=== PATIENT | male | born 1940 | race Caucasian/White ===

== ENCOUNTER 2018-02-27 08:26 | Inpatient (IN) | payer MEDICARE, BC ==
--- NOTE | 2018-02-27 16:17 | PCM.HP ---
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 He fell at home on 20 February is admitted at [facility] for orthopedic consultation. He underwent successful repair is now being admitted here for rehabilitation , strengthening, physical therapy pain control. He is previously healthy with exception of hypertension ,type 2 diabetes and obesity. His pain is under control with narcotics - Related Data Allergies/Adverse Reactions: Allergies Allergy/AdvReac Type Severity Reaction Status Date / Time morphine AdvReac Nausea and Verified 02/27/18 14:05 Vomiting Home Medications: Home Meds ALPRAZolam [Alprazolam] 0.25 mg PO BEDTIME PRN 02/27/18 [History] Citalopram Hydrobromide [Celexa] 20 mg PO DAILY 02/27/18 [History] Diazepam [Valium] 5 mg PO Q6H PRN 02/27/18 [History] Insulin NPH Hum/Reg Insulin Hm [Humulin 70/30 Kwikpen] 64 unit SQ BIDAC [History] Lisinopril 20 mg PO BEDTIME 02/27/18 [History] Multivitamin [Multi-Vitamin Daily] 1 each PO DAILY 02/27/18 [History] Sennosides/Docusate Sodium [Senna-S] 2 tab PO BID 02/27/18 [History] Simvastatin [Zocor] 10 mg PO BEDTIME 02/27/18 [History] Zolpidem Tartrate [Ambien] 5 mg PO BEDTIME PRN 02/27/18 [History] oxyCODONE 5 mg PO Q3H PRN 02/27/18 [History] oxyCODONE 10 mg PO Q3H PRN 02/27/18 [History] H&P Review of Systems - Review of Systems: Review Of Systems: ROS reveals no pertinent complaints other than HPI. Exam - Exam Exam: See Below - Exam Quality Assessment: DVT Prophylaxis General: Oriented HEENT: PERRLA Lungs: Crackles Cardiovascular: Regular Rate, Regular Rhythm GI/Abdominal Exam: Normal Bowel Sounds, Soft, Non-Tender, No Organomegaly, No Distention, No Abnormal Bruit, No Mass, Pelvis Stable Back Exam: Normal Inspection, Full Range of Motion, NT Extremities: Normal Inspection, Normal Range of Motion, Non-Tender, No Pedal Edema, Normal Capillary Refill, Redness (Rt femur dressing), Other Skin: Warm, Dry, Intact Neurological: Cranial Nerves Intact, Reflexes Equal Bilateral Neuro Extensive - Mental Status: Alert, Oriented x3, Normal Mood/Affect, Normal Cognition Neuro Extensive - Motor, Sensory, Reflexes: CN II-XII Intact, Normal Gait, Normal Reflexes Psychiatric: Alert, Normal Affect, Normal Mood - Problem List (1) Closed femur fracture SNOMED Code(s): 45083408 ICD Code: S72.90XA - UNSP FRACTURE OF UNSP FEMUR, INIT ENCNTR FOR CLOSED FRACTURE Status: Acute Current Visit: Yes Qualifiers: Encounter type: subsequent encounter Fracture morphology: comminuted Fracture alignment: displaced Laterality: right Fracture healing: with routine healing (2) Obesity SNOMED Code(s): 899759797, 932757575 ICD Code: E66.9 - OBESITY, UNSPECIFIED Status: Chronic Current Visit: Yes Qualifiers: Obesity type: due to excess calories (3) HTN (hypertension) SNOMED Code(s): 67790375 ICD Code: I10 - ESSENTIAL (PRIMARY) HYPERTENSION Status: Chronic Current Visit: Yes Qualifiers: Hypertension type: essential hypertension Qualified Code(s): I10 - Essential (primary) hypertension (4) Diabetes type 2, controlled SNOMED Code(s): 96926054 ICD Code: E11.9 - TYPE 2 DIABETES MELLITUS WITHOUT COMPLICATIONS Status: Acute Current Visit: Yes Qualifiers: Diabetes mellitus half-way insulin use: with electrician research use (5) HLD (hyperlipidemia) SNOMED Code(s): 81295854 ICD Code: E78.5 - HYPERLIPIDEMIA, UNSPECIFIED Status: Chronic Current Visit: Yes Qualifiers: Hyperlipidemia type: unspecified Qualified Code(s): E78.5 - Hyperlipidemia , unspecified Problem List Initiated/Reviewed/Updated: Yes Orders Last 24hrs: Active Orders 24 hr Category Date Time Status Admission Status [Patient Status] [ADT] Routine ADT 02/27/18 12:48 Active Assessment/Plan Comment:: Admit to swing bed, a consultation still physical and occupational therapy. Resume medications from [facility]. His record there was reviewed and discharge summary acknowledged
[2018-02-27] MEDS ORDERED: Diazepam 5 MG Tab PO PRN (16:18)
[2018-02-27] MEDS: oxyCODONE 5 MG Tab PO PRN ×2 (16:46→21:50)
[2018-02-27] MEDS ORDERED: Insuln Aspart Prot/Insulin Aspart 100 Units/ML 3 ML FlexPen SUBCUT SCH (17:30)
[2018-02-27] MEDS: Insuln Aspart Prot/Insulin Aspart 100 Units/ML 3 ML FlexPen SUBCUT SCH (21:34)
[2018-02-27] MEDS: Lisinopril 20 MG Tab PO SCH (21:49)
[2018-02-27] MEDS: Simvastatin 10 MG Tab PO SCH (21:50)
[2018-02-28] MEDS: Zolpidem 5 MG Tab PO PRN ×2 (00:56→21:38)
[2018-02-28] MEDS: oxyCODONE 5 MG Tab PO PRN ×2 (00:57→06:21)
[2018-02-28] MEDS: Multivitamin Tab PO SCH (08:57)
[2018-02-28] MEDS: Citalopram 20 MG Tab PO SCH (08:57)
[2018-02-28] MEDS: Enoxaparin 40 MG/0.4 ML Syringe SUBCUT SCH (08:57)
[2018-02-28] MEDS: Insuln Aspart Prot/Insulin Aspart 100 Units/ML 3 ML FlexPen SUBCUT SCH ×2 (08:58→18:59)
[2018-02-28] MEDS ORDERED: Bisacodyl 10 MG Supp RECTAL PRN (09:15)
[2018-02-28] MEDS: Ondansetron 4 MG Tab.DIS PO PRN (09:29)
[2018-02-28] MEDS ORDERED: Polyethylene Glycol 3350 Powder 17 GM Packet PO ONE (09:54)
[2018-02-28] MEDS ORDERED: LORazepam 0.5 MG Tab PO PRN (09:54)
[2018-02-28] MEDS ORDERED: Iopamidol 755 Mg/ML 100 ML Bottle IV ONE (13:55)
[2018-02-28] MEDS: Acetaminophen 325 MG Tab PO PRN (15:31)
--- NOTE | 2018-02-28 17:58 | PCM.SN ---
- Free Text/Narrative Note: Recent has some shortness of breath. Dr. Poole ordered a CT scan. He stated that the report was no PE. Cannot rule out pneumonia or CHF. The heart copies not done yet. Patient had a BM in the nurse reported he is much better. He has no symptoms at this time. Troponin is slightly elevated and trended up just barely. Will recheck EKG and troponin the a.m. Patient states the oxycodone does not make him feel good. He wants to decrease the pain medication. Start Narco 10/325 one every 4 hours when necessary for pain. Stop oxycodone
[2018-02-28] MEDS: Acetaminophen/HYDROcodone 325-10 MG Tab PO PRN (19:01)
[2018-02-28] MEDS: Simvastatin 10 MG Tab PO SCH (22:15)
[2018-02-28] MEDS: Lisinopril 20 MG Tab PO SCH (22:15)
--- NOTE | 2018-03-01 07:54 | CT ---
INDICATION: Short of breath, question PE. COMPUTERIZED TOMOGRAPHY ANGIOGRAPHY OF THE CHEST FOR PULMONARY ARTERIES: Spiral 1.25 mm axial sections were obtained through the chest with sagittal and coronal reconstructions, utilizing 90 mL Isovue 370 at 3 mL/second, 02/28/2018 - no comparisons. Total exam DLP = 935.63 mGy-cm. Calcifications are noted in the aorta and coronary arteries. The heart appears slightly prominent and likely is at the upper limits of normal in size. No pericardial effusion was seen. No mediastinal masses were seen. Mediastinal lymphadenopathy is mild and fairly nonspecific. Calcifications are noted in the brachiocephalic vessels. No definite evidence of pulmonary emboli could be identified. Interstitial changes and subpleural fibrotic appearing changes are noted, which may be on the basis on pulmonary fibrosis, although interstitial lung edema could also be present in a patient with an acute myocardial event - CHF. This should be correlated clinically. Pneumonia could also be present with this appearance but is felt to be less likely. No definite nodular masses were seen. The upper abdomen included on the study revealed evidence of renal cortical scarring, most prominently on the right, with minimal aortic superior mesenteric celiac axis and splenic artery calcifications. Calcifications were also noted at the origins of the renal arteries. IMPRESSION: 1. No definite evidence of pulmonary emboli. 2. Interstitial changes and subpleural changes, which may be on the basis of pulmonary fibrosis. The possibility of CHF and interstitial lung edema would be a consideration also. Pneumonia is felt to be less likely with this patient s history. 3. Renal cortical scarring. 4. ASD/ASHD with heart appearing to be at the upper limits of normal in size or possibly slightly enlarged. Report was called to Dr. Poole at 1446 hours on 02/28/2018. [facility]
[2018-03-01] MEDS: Acetaminophen/HYDROcodone 325-10 MG Tab PO PRN ×2 (08:25→13:47)
[2018-03-01] MEDS: Enoxaparin 40 MG/0.4 ML Syringe SUBCUT SCH (10:40)
[2018-03-01] MEDS: Citalopram 20 MG Tab PO SCH (10:40)
[2018-03-01] MEDS: Multivitamin Tab PO SCH (10:40)
[2018-03-01] MEDS: Aspirin 81 MG Tab.EC PO SCH (10:40)
[2018-03-01] MEDS: Insuln Aspart Prot/Insulin Aspart 100 Units/ML 3 ML FlexPen SUBCUT SCH ×2 (10:40→18:08)
--- NOTE | 2018-03-01 15:08 | PCM.PN ---
- General Info Date of Service: 03/01/18 Subjective Update: Patient is a 77-year-old male currently on swing bed day #3. Patient fell on February 20 and sustained a right distal femur fracture or a complex knee fracture involving the joint. On 02/24 underwent a complex right total knee arthroplasty and is here for rehabilitation. He was admitted to swing bed to [facility] on . Yesterday he was short of breath with activity and had an extensive evaluation for possible PE. Laboratory testing did show a somewhat confounding factor of a slightly elevated troponin to 0.1 which was 0.05 this morning. Because today is Sunday was able to obtain an echocardiogram which showed no wall motion abnormalities. However the preliminary report does not mention ejection fraction. Also had CT chest which was negative for PE. Patient did have left ventricular hypertrophy. He is feeling well today. He's having no shortness of breath or chest pain. No nausea or vomiting. Physical therapy is going well for him. They decreased his pain medicine yesterday which he feels has gone well and pain is well controlled. - Patient Data Vitals - Most Recent: Last Vital Signs Temp 37.0 C 03/01/18 07:10 Pulse 90 03/01/18 07:10 Resp 20 03/01/18 07:10 BP 136/68 03/01/18 07:10 Pulse Ox 92 L 03/01/18 07:10 Weight - Most Recent: 135.579 kg Lab Results Last 24 Hours: Laboratory Results - last 24 hr 02/28/18 02/28/18 03/01/18 Range/Units 16:40 17:33 06:05 POC Glucose 175 H (80-116) mg/dL Troponin I 0.105 H* 0.055 (<0.017-0.056) ng/mL 03/01/18 03/01/18 Range/Units 06:10 13:56 POC Glucose 99 166 H (80-116) mg/dL Troponin I (<0.017-0.056) ng/mL Med Orders - Current: Current Medications Acetaminophen (Tylenol) 650 mg PO Q4H PRN PRN Reason: Pain Last Admin: 02/28/18 15:31 Dose: 650 mg Hydrocodone Bitart/Acetaminophen ([place] 325-10 Mg) 1 tab PO Q4H PRN PRN Reason: Pain Last Admin: 03/01/18 13:47 Dose: 1 tab Aspirin (Halfprin) 81 mg PO DAILY [facility] Last Admin: 03/01/18 10:40 Dose: 81 mg Bisacodyl (Dulcolax) 10 mg RECTAL DAILY PRN PRN Reason: Constipation Last Admin: 02/28/18 10:15 Dose: 10 mg Citalopram Hydrobromide (Celexa) 20 mg PO DAILY [facility] Last Admin: 03/01/18 10:40 Dose: 20 mg Diazepam (Valium.) 5 mg PO Q6H PRN PRN Reason: Muscle Spasm Enoxaparin Sodium (Lovenox) 40 mg SUBCUT DAILY [facility] Last Admin: 03/01/18 10:40 Dose: 40 mg Insulin Aspart (Novolog Mix 70-30) 32 unit SUBCUT BIDMEALS [facility] Last Admin: 03/01/18 10:40 Dose: 32 units Lisinopril (Prinivil) 20 mg PO BEDTIME [facility] Last Admin: 02/28/18 22:15 Dose: 20 mg Lorazepam (Ativan) 0.5 mg PO Q8H PRN PRN Reason: Anxiety Multivitamins/Minerals/Vitamin C (Tab-A-Chavo) 1 tab PO DAILY [facility] Last Admin: 03/01/18 10:40 Dose: 1 tab Ondansetron HCl (Zofran Odt) 4 mg PO Q6H PRN PRN Reason: Nausea/Vomiting Last Admin: 02/28/18 09:29 Dose: 4 mg Senna/Docusate Sodium (Senna Plus) 2 tab PO BID [facility] Last Admin: 03/01/18 10:40 Dose: 2 tab Simvastatin (Zocor) 10 mg PO BEDTIME [facility] Last Admin: 02/28/18 22:15 Dose: 10 mg Zolpidem Tartrate (Ambien) 5 mg PO BEDTIME PRN PRN Reason: Insomnia Last Admin: 02/28/18 21:38 Dose: 5 mg Discontinued Medications Insulin Aspart (Novolog Mix 70-30) 64 unit SUBCUT BIDAC [facility] Last Admin: 02/27/18 18:20 Dose: Not Given Iopamidol (Isovue-370 (76%)) 100 ml IV . DIRECTED ONE Stop: 02/28/18 13:56 Last Admin: 02/28/18 14:14 Dose: 90 ml Oxycodone HCl (Oxycodone) 10 mg PO Q3H PRN PRN Reason: PAIN (6-10) Last Admin: 02/28/18 06:21 Dose: 10 mg Polyethylene Glycol (Miralax) 17 gm PO ONETIME ONE Stop: 02/28/18 09:55 Last Admin: 02/28/18 14:35 Dose: Not Given - Exam General: Alert, Oriented, Cooperative, No Acute Distress HEENT: Pupils Equal, Pupils Reactive Neck: Supple Lungs: Clear to Auscultation, Normal Respiratory Effort Cardiovascular: Regular Rate, Regular Rhythm, No Murmurs GI/Abdominal Exam: Normal Bowel Sounds, Soft, Non-Tender, No Distention Back Exam: Normal Inspection, Full Range of Motion Extremities: Normal Inspection, Pedal Edema (1+ edema bilaterally.) Psy/Mental Status: Alert, Normal Affect, Normal Mood - Problem List & Annotations (1) Status post total right knee replacement SNOMED Code(s): 6896560280750 Code(s): Z96.651 - PRESENCE OF RIGHT ARTIFICIAL KNEE JOINT Status: Acute Current Visit: Yes Annotation/Comment:: Secondary to fall after tripping on a pallet. Pain is well controlled. Patient doing very well with physical and occupational therapy. Continue current cares. (2) Elevated troponin SNOMED Code(s): 704081152, 872953655, 265619442 Code(s): R74.8 - ABNORMAL LEVELS OF OTHER SERUM ENZYMES Status: Acute Current Visit: Yes Annotation/Comment:: Trending down. Patient has no symptoms and echocardiogram showed no wall motion abnormalities. Patient was started on a baby aspirin daily for cardiac prophylaxis and it's not clear to me why he was not taking this with his diagnosis of diabetes and no listed allergy to aspirin. He doesn't know either. Recommend he continue this indefinitely. Discussed starting beta norm but with his diabetes and history of low blood sugars in the past and no evidence of true heart attack at this point I'm going to not start beta blockade. (3) Diabetes type 2, controlled SNOMED Code(s): 43862926 Code(s): E11.9 - TYPE 2 DIABETES MELLITUS WITHOUT COMPLICATIONS Status: Acute Current Visit: Yes Qualifiers: Diabetes mellitus mcfp insulin use: with moth exterminator use Annotation/Comment:: Continue current insulin therapy. (4) HLD (hyperlipidemia) SNOMED Code(s): 21712973 Code(s): E78.5 - HYPERLIPIDEMIA, UNSPECIFIED Status: Chronic Current Visit: Yes Qualifiers: Hyperlipidemia type: unspecified Qualified Code(s): E78.5 - Hyperlipidemia , unspecified Annotation/Comment:: Continue Zocor. (5) HTN (hypertension) SNOMED Code(s): 75746547 Code(s): I10 - ESSENTIAL (PRIMARY) HYPERTENSION Status: Chronic Current Visit: Yes Qualifiers: Hypertension type: essential hypertension Qualified Code(s): I10 - Essential (primary) hypertension Annotation/Comment:: Continue lisinopril. We'll decrease the dose by half as blood pressure has been quite soft. (6) Obesity SNOMED Code(s): 997568390, 505609314 Code(s): E66.9 - OBESITY, UNSPECIFIED Status: Chronic Current Visit: Yes Qualifiers: Obesity type: due to excess calories (7) DVT prophylaxis SNOMED Code(s): 804767798, 689449409 Code(s): GZS5885 - Status: Acute Current Visit: Yes Annotation/Comment :: Currently on Lovenox for DVT prophylaxis. The plan for discharge would be aspirin 81 mg twice daily for 42 days posthospital discharge. - Problem List Review Problem List Initiated/Reviewed/Updated: Yes - My Orders Last 24 Hours: My Active Orders 03/01/18 08:44 Echo Comp wo Cont [US] Routine 03/01/18 09:00 Aspirin [Halfprin] 81 mg PO DAILY
[2018-03-01] MEDS: Ondansetron 4 MG Tab.DIS PO PRN (19:56)
[2018-03-01] MEDS: Simvastatin 10 MG Tab PO SCH (21:25)
[2018-03-01] MEDS: Lisinopril 10 MG Tab PO SCH (21:28)
[2018-03-02] MEDS: Citalopram 20 MG Tab PO SCH (08:35)
[2018-03-02] MEDS: Enoxaparin 40 MG/0.4 ML Syringe SUBCUT SCH (08:35)
[2018-03-02] MEDS: Aspirin 81 MG Tab.EC PO SCH (08:35)
[2018-03-02] MEDS: Multivitamin Tab PO SCH (08:36)
[2018-03-02] MEDS: Insuln Aspart Prot/Insulin Aspart 100 Units/ML 3 ML FlexPen SUBCUT SCH ×2 (08:38→17:54)
[2018-03-02] MEDS ORDERED: Famotidine 20 MG Tab PO SCH (09:00)
[2018-03-02] MEDS: Ondansetron 4 MG Tab.DIS PO PRN ×2 (09:25→18:41)
[2018-03-02] MEDS: Acetaminophen 325 MG Tab PO PRN (09:25)
--- NOTE | 2018-03-02 10:49 | PCM.SN ---
- Free Text/Narrative Note: Patient doing well today. His Zantac was therapeutically substituted for pepcid and inadvertently time dosed for 9 AM instead of 7 AM. We changed that to 6 AM dosing so he can get it first thing in the morning and hopefully this will help with his morning heartburn as it's the same when he takes it at home.
[2018-03-02] MEDS ORDERED: rOPINIRole 1 MG Tab ONE (12:56)
[2018-03-02] MEDS: rOPINIRole 0.5 MG Tab PO PRN ×2 (13:03→20:24)
[2018-03-02] MEDS: Simvastatin 10 MG Tab PO SCH (22:03)
[2018-03-02] MEDS: Lisinopril 10 MG Tab PO SCH (22:03)
[2018-03-02] MEDS: Zolpidem 5 MG Tab PO PRN (22:08)
[2018-03-03] MEDS: rOPINIRole 0.5 MG Tab PO PRN ×2 (03:07→21:18)
[2018-03-03] MEDS: Famotidine 20 MG Tab PO SCH (06:12)
[2018-03-03] MEDS: Insuln Aspart Prot/Insulin Aspart 100 Units/ML 3 ML FlexPen SUBCUT SCH ×2 (08:18→17:55)
[2018-03-03] MEDS: Citalopram 20 MG Tab PO SCH (08:19)
[2018-03-03] MEDS: Enoxaparin 40 MG/0.4 ML Syringe SUBCUT SCH (08:20)
[2018-03-03] MEDS: Multivitamin Tab PO SCH (08:21)
[2018-03-03] MEDS: Aspirin 81 MG Tab.EC PO SCH (08:21)
[2018-03-03] MEDS: Acetaminophen 325 MG Tab PO PRN (08:32)
[2018-03-03] MEDS: Ondansetron 4 MG Tab.DIS PO PRN (08:35)
[2018-03-03] MEDS ORDERED: rOPINIRole 1 MG Tab ONE (17:02)
[2018-03-03] MEDS ORDERED: rOPINIRole 0.5 MG Tab PO ONE (17:21)
[2018-03-03] MEDS ORDERED: rOPINIRole 1 MG Tab PO ONE (18:00)
[2018-03-03] MEDS: Lisinopril 10 MG Tab PO SCH (21:18)
[2018-03-03] MEDS: Simvastatin 10 MG Tab PO SCH (21:18)
[2018-03-03] MEDS: Zolpidem 5 MG Tab PO PRN (23:17)
[2018-03-04] MEDS: Famotidine 20 MG Tab PO SCH (06:13)
[2018-03-04] MEDS: Citalopram 20 MG Tab PO SCH (08:53)
[2018-03-04] MEDS: Aspirin 81 MG Tab.EC PO SCH (08:53)
[2018-03-04] MEDS: Multivitamin Tab PO SCH (08:54)
[2018-03-04] MEDS: rOPINIRole 0.5 MG Tab PO PRN (08:54)
[2018-03-04] MEDS: Enoxaparin 40 MG/0.4 ML Syringe SUBCUT SCH (08:54)
[2018-03-04] MEDS: Insuln Aspart Prot/Insulin Aspart 100 Units/ML 3 ML FlexPen SUBCUT SCH ×2 (09:02→17:35)
[2018-03-04] MEDS: Acetaminophen 325 MG Tab PO PRN ×3 (10:14→19:50)
[2018-03-04] MEDS: Zolpidem 5 MG Tab PO PRN (21:22)
[2018-03-04] MEDS: Lisinopril 10 MG Tab PO SCH (21:22)
[2018-03-04] MEDS: Simvastatin 10 MG Tab PO SCH (21:23)
[2018-03-05] MEDS: Famotidine 20 MG Tab PO SCH (06:15)
[2018-03-05] MEDS: Insuln Aspart Prot/Insulin Aspart 100 Units/ML 3 ML FlexPen SUBCUT SCH ×2 (08:09→19:19)
[2018-03-05] MEDS: Citalopram 20 MG Tab PO SCH (08:12)
[2018-03-05] MEDS: Aspirin 81 MG Tab.EC PO SCH (08:12)
[2018-03-05] MEDS: Enoxaparin 40 MG/0.4 ML Syringe SUBCUT SCH (08:12)
[2018-03-05] MEDS: Multivitamin Tab PO SCH (08:13)
[2018-03-05] MEDS: Acetaminophen 325 MG Tab PO PRN (08:23)
[2018-03-05] MEDS: Ondansetron 4 MG Tab.DIS PO PRN (08:24)
[2018-03-05] MEDS ORDERED: oxyCODONE 5 MG Tab PO PRN (09:18)
[2018-03-05] MEDS: rOPINIRole 0.5 MG Tab PO PRN ×3 (09:42→23:58)
--- NOTE | 2018-03-05 16:08 | PCM.PN ---
- General Info Date of Service: 03/05/18 Subjective Update: Patient is a 77-year-old male currently on swing bed day #7. Patient fell on February 20 and sustained a right distal femur fracture or a complex knee fracture involving the joint. On 02/24 underwent a complex right total knee arthroplasty and is here for rehabilitation. He was admitted to swing bed to [facility] on . He is feeling well today. He's having no new shortness of breath or chest pain. No nausea or vomiting. Physical therapy is going well for him. Very fatigued today after receiving oxycodone for pain. Would like to use hydrocodone instead. Has been having loose stools as when his narcotics were discontinued his laxatives were not. - Patient Data Vitals - Most Recent: Last Vital Signs Temp 37.4 C 03/05/18 07:25 Pulse 84 03/05/18 07:25 Resp 18 03/05/18 07:25 BP 146/67 H 03/05/18 07:25 Pulse Ox 95 03/05/18 07:25 Weight - Most Recent: 135.579 kg Lab Results Last 24 Hours: Laboratory Results - last 24 hr 03/04/18 03/05/18 03/05/18 Range/Units 17:32 06:17 11:02 POC Glucose 285 H D 140 H D 180 H (80-116) mg/dL Med Orders - Current: Current Medications Acetaminophen (Tylenol) 650 mg PO Q4H PRN PRN Reason: Pain Last Admin: 03/05/18 08:23 Dose: 650 mg Hydrocodone Bitart/Acetaminophen ([place] 325-5 Mg) 1 tab PO Q6H PRN PRN Reason: Pain Aspirin (Halfprin) 81 mg PO DAILY [facility] Last Admin: 03/05/18 08:12 Dose: 81 mg Bisacodyl (Dulcolax) 10 mg RECTAL DAILY PRN PRN Reason: Constipation Last Admin: 02/28/18 10:15 Dose: 10 mg Citalopram Hydrobromide (Celexa) 20 mg PO DAILY [facility] Last Admin: 03/05/18 08:12 Dose: 20 mg Diazepam (Valium.) 5 mg PO Q6H PRN PRN Reason: Muscle Spasm Enoxaparin Sodium (Lovenox) 40 mg SUBCUT DAILY [facility] Last Admin: 03/05/18 08:12 Dose: 40 mg Famotidine (Pepcid) 20 mg PO DAILY@0600 [facility] Last Admin: 03/05/18 06:15 Dose: 20 mg Insulin Aspart (Novolog Mix 70-30) 32 unit SUBCUT BIDMEALS [facility] Last Admin: 03/05/18 08:09 Dose: 28 units Lisinopril (Prinivil) 10 mg PO BEDTIME [facility] Last Admin: 03/04/18 21:22 Dose: 10 mg Lorazepam (Ativan) 0.5 mg PO Q8H PRN PRN Reason: Anxiety Last Admin: 03/04/18 23:06 Dose: 0.5 mg Multivitamins/Minerals/Vitamin C (Tab-A-Chavo) 1 tab PO DAILY [facility] Last Admin: 03/05/18 08:13 Dose: 1 tab Ondansetron HCl (Zofran Odt) 4 mg PO Q6H PRN PRN Reason: Nausea/Vomiting Last Admin: 03/05/18 08:24 Dose: 4 mg Ropinirole HCl (Requip) 0.5 mg PO TID PRN PRN Reason: restless legs Last Admin: 03/05/18 09:42 Dose: 0.5 mg Senna/Docusate Sodium (Senna Plus) 2 tab PO BID [facility] Last Admin: 03/05/18 08:12 Dose: 2 tab Simvastatin (Zocor) 10 mg PO BEDTIME [facility] Last Admin: 03/04/18 21:23 Dose: 10 mg Zolpidem Tartrate (Ambien) 5 mg PO BEDTIME PRN PRN Reason: Insomnia Last Admin: 03/04/18 21:22 Dose: 5 mg Discontinued Medications Hydrocodone Bitart/Acetaminophen ([place] 325-10 Mg) 1 tab PO Q4H PRN PRN Reason: Pain Last Admin: 03/01/18 13:47 Dose: 1 tab Famotidine (Pepcid) 20 mg PO DAILY [facility] Last Admin: 03/02/18 08:35 Dose: 20 mg Insulin Aspart (Novolog Mix 70-30) 64 unit SUBCUT BIDAC [facility] Last Admin: 02/27/18 18:20 Dose: Not Given Iopamidol (Isovue-370 (76%)) 100 ml IV . DIRECTED ONE Stop: 02/28/18 13:56 Last Admin: 02/28/18 14:14 Dose: 90 ml Lisinopril (Prinivil) 20 mg PO BEDTIME [facility] Last Admin: 02/28/18 22:15 Dose: 20 mg Oxycodone HCl (Oxycodone) 10 mg PO Q3H PRN PRN Reason: PAIN (6-10) Last Admin: 02/28/18 06:21 Dose: 10 mg Oxycodone HCl (Oxycodone) 5 mg PO Q3H PRN PRN Reason: Pain (Mild 1-5) Last Admin: 03/05/18 09:45 Dose: 5 mg Polyethylene Glycol (Miralax) 17 gm PO ONETIME ONE Stop: 02/28/18 09:55 Last Admin: 02/28/18 14:35 Dose: Not Given Ropinirole HCl (Requip) Confirm Administered Dose 1 mg .ROUTE .STK-MED ONE Stop: 03/02/18 12:57 Last Admin: 03/02/18 13:03 Dose: Not Given Ropinirole HCl (Requip) Confirm Administered Dose 1 mg .ROUTE .STK-MED ONE Stop: 03/03/18 17:03 Last Admin: 03/03/18 17:55 Dose: Not Given Ropinirole HCl (Requip) 0.5 mg PO ONETIME ONE Stop: 03/03/18 17:22 Last Admin: 03/03/18 18:04 Dose: Not Given Ropinirole HCl (Requip) 0.5 mg PO ONETIME ONE Stop: 03/03/18 18:01 Last Admin: 03/03/18 18:05 Dose: 0.5 mg - Exam General: Oriented, No Acute Distress (rousable but a little sedated.), Sedated HEENT: Pupils Equal, Pupils Reactive Neck: Supple Lungs: Clear to Auscultation, Normal Respiratory Effort Cardiovascular: Regular Rate, Regular Rhythm, No Murmurs GI/Abdominal Exam: Normal Bowel Sounds, Soft, Non-Tender, No Distention Back Exam: Normal Inspection Extremities: No Pedal Edema - Problem List & Annotations (1) Status post total right knee replacement SNOMED Code(s): 5778953691417 Code(s): Z96.651 - PRESENCE OF RIGHT ARTIFICIAL KNEE JOINT Status: Acute Current Visit: Yes Annotation/Comment:: Secondary to fall after tripping on a pallet. Pain is better controlled. Patient doing very well with physical and occupational therapy. Continue current cares. (2) Elevated troponin SNOMED Code(s): 017691918, 984841382, 112759139 Code(s): R74.8 - ABNORMAL LEVELS OF OTHER SERUM ENZYMES Status: Acute Current Visit: Yes Annotation/Comment:: On aspirin daily for this. Negative echocardiogram. Beta norm not started due to diabetes and risk of blocking lows. (3) Diabetes type 2, controlled SNOMED Code(s): 60177654 Code(s): E11.9 - TYPE 2 DIABETES MELLITUS WITHOUT COMPLICATIONS Status: Acute Current Visit: Yes Qualifiers: Diabetes mellitus care home insulin use: with care home use Annotation/Comment:: Continue current insulin therapy. (4) HLD (hyperlipidemia) SNOMED Code(s): 80084825 Code(s): E78.5 - HYPERLIPIDEMIA, UNSPECIFIED Status: Chronic Current Visit: Yes Qualifiers: Hyperlipidemia type: unspecified Qualified Code(s): E78.5 - Hyperlipidemia , unspecified Annotation/Comment:: Continue Zocor. (5) HTN (hypertension) SNOMED Code(s): 23619725 Code(s): I10 - ESSENTIAL (PRIMARY) HYPERTENSION Status: Chronic Current Visit: Yes Qualifiers: Hypertension type: essential hypertension Qualified Code(s): I10 - Essential (primary) hypertension Annotation/Comment:: Continue lisinopril. We'll decrease the dose by half as blood pressure has been quite soft. (6) Obesity SNOMED Code(s): 641905811, 804480538 Code(s): E66.9 - OBESITY, UNSPECIFIED Status: Chronic Current Visit: Yes Qualifiers: Obesity type: due to excess calories (7) DVT prophylaxis SNOMED Code(s): 591092795, 743386732 Code(s): VCY8533 - Status: Acute Current Visit: Yes Annotation/Comment :: Currently on Lovenox for DVT prophylaxis. The plan for discharge would be aspirin 81 mg twice daily for 42 days posthospital discharge. - Problem List Review Problem List Initiated/Reviewed/Updated: Yes - My Orders Last 24 Hours: My Active Orders 03/05/18 15:58 Acetaminophen/HYDROcodone [[place] 325-5 MG] 1 tab PO Q6H PRN 03/06/18 05:11 CBC WITH AUTO DIFF [HEME] AM COMPREHENSIVE METABOLIC PN,CMP [CHEM] AM
[2018-03-05] MEDS: Acetaminophen/HYDROcodone 325-5 MG Tab PO PRN ×2 (16:25→22:43)
[2018-03-05] MEDS: Simvastatin 10 MG Tab PO SCH (21:12)
[2018-03-05] MEDS: Lisinopril 10 MG Tab PO SCH (21:12)
[2018-03-05] MEDS: Zolpidem 5 MG Tab PO PRN (23:57)
[2018-03-06] MEDS: Famotidine 20 MG Tab PO SCH (07:00)
[2018-03-06] MEDS: Insuln Aspart Prot/Insulin Aspart 100 Units/ML 3 ML FlexPen SUBCUT SCH ×2 (09:05→18:06)
[2018-03-06] MEDS: Citalopram 20 MG Tab PO SCH (09:06)
[2018-03-06] MEDS: Enoxaparin 40 MG/0.4 ML Syringe SUBCUT SCH (09:06)
[2018-03-06] MEDS: Aspirin 81 MG Tab.EC PO SCH (09:06)
[2018-03-06] MEDS: Multivitamin Tab PO SCH (09:07)
[2018-03-06] MEDS: Acetaminophen/HYDROcodone 325-5 MG Tab PO PRN (11:39)
--- NOTE | 2018-03-06 14:28 | PCM.PN ---
- General Info Date of Service: 03/06/18 Subjective Update: Patient is a 77-year-old male currently on swing bed day #7. Patient fell on February 20 and sustained a right distal femur fracture or a complex knee fracture involving the joint. On 02/24 underwent a complex right total knee arthroplasty and is here for rehabilitation. He was admitted to swing bed to [facility] [place] on . He is feeling well today. He's having no new shortness of breath or chest pain. No nausea or vomiting. Physical therapy is going well for him. Still fatigued with the narcotic but pain is well controlled. - Patient Data Vitals - Most Recent: Last Vital Signs Temp 36.8 C 03/06/18 08:00 Pulse 85 03/06/18 08:00 Resp 15 03/06/18 08:00 BP 130/68 03/06/18 08:00 Pulse Ox 92 L 03/06/18 08:00 Weight - Most Recent: 135.579 kg I&O - Last 24 Hours: Intake & Output 03/05/18 03/06/18 03/06/18 22:59 06:59 14:59 Output Total 500 Balance -500 Lab Results Last 24 Hours: Laboratory Results - last 24 hr 03/05/18 03/05/18 03/06/18 Range/Units 17:36 21:10 06:35 WBC 8.3 (4.5-12.0) X10-3/uL RBC 2.91 L (4.30-5.75) x10(6)uL Hgb 9.1 L (11.5-15.5) g/dL Hct 26.9 L (30.0-51.3) % MCV 92.7 (80-96) fL MCH 31.3 (27.7-33.6) pg MCHC 33.8 (32.2-35.4) g/dL RDW 13.2 (11.5-15.5) % Plt Count 303 (125-369) X10(3)uL MPV 9.2 (7.4-10.4) fL Neut % (Auto) 59.9 (46-82) % Lymph % (Auto) 28.7 (13-37) % Curry % (Auto) 8.0 (4-12) % Eos % (Auto) 3 (1.0-5.0) % Baso % (Auto) 1 (0-2) % Neut # (Auto) 4.9 (1.6-8.3) # Lymph # (Auto) 2.4 (0.6-5.0) # Curry # (Auto) 0.7 (0.0-1.3) # Eos # (Auto) 0.2 (0.0-0.8) # Baso # (Auto) 0.1 (0.0-0.2) # Sodium (135-145) mmol/L Potassium (3.5-5.3) mmol/L Chloride (100-110) mmol/L Carbon Dioxide (21-32) mmol/L BUN (7-18) mg/dL Creatinine (0.70-1.30) mg/dL Est Cr Clr Drug Dosing mL/min Estimated GFR (MDRD) (>60) BUN/Creatinine Ratio (9-20) Glucose (80-116) mg/dL POC Glucose 224 H 281 H (80-116) mg/dL Calcium (8.6-10.2) mg/dL Total Bilirubin (0.1-1.3) mg/dL AST (5-25) IU/L ALT (12-36) U/L Alkaline Phosphatase (56-112) IU/L Total Protein (6.0-8.0) g/dL Albumin (3.2-4.6) g/dL Globulin g/dL Albumin/Globulin Ratio 03/06/18 03/06/18 Range/Units 06:35 11:19 WBC (4.5-12.0) X10-3/uL RBC (4.30-5.75) x10(6)uL Hgb (11.5-15.5) g/dL Hct (30.0-51.3) % MCV (80-96) fL MCH (27.7-33.6) pg MCHC (32.2-35.4) g/dL RDW (11.5-15.5) % Plt Count (125-369) X10(3)uL MPV (7.4-10.4) fL Neut % (Auto) (46-82) % Lymph % (Auto) (13-37) % Curry % (Auto) (4-12) % Eos % (Auto) (1.0-5.0) % Baso % (Auto) (0-2) % Neut # (Auto) (1.6-8.3) # Lymph # (Auto) (0.6-5.0) # Curry # (Auto) (0.0-1.3) # Eos # (Auto) (0.0-0.8) # Baso # (Auto) (0.0-0.2) # Sodium 137 (135-145) mmol/L Potassium 4.0 (3.5-5.3) mmol/L Chloride 102 (100-110) mmol/L Carbon Dioxide 28 (21-32) mmol/L BUN 19 H (7-18) mg/dL Creatinine 1.2 (0.70-1.30) mg/dL Est Cr Clr Drug Dosing 58.99 mL/min Estimated GFR (MDRD) 59 L (>60) BUN/Creatinine Ratio 15.8 (9-20) Glucose 170 H D (80-116) mg/dL POC Glucose 291 H (80-116) mg/dL Calcium 8.2 L (8.6-10.2) mg/dL Total Bilirubin 0.8 (0.1-1.3) mg/dL AST 26 H D (5-25) IU/L ALT 48 H (12-36) U/L Alkaline Phosphatase 81 (56-112) IU/L Total Protein 6.6 (6.0-8.0) g/dL Albumin 2.5 L (3.2-4.6) g/dL Globulin 4.1 g/dL Albumin/Globulin Ratio 0.6 Med Orders - Current: Current Medications Acetaminophen (Tylenol) 650 mg PO Q4H PRN PRN Reason: Pain Last Admin: 03/05/18 08:23 Dose: 650 mg Hydrocodone Bitart/Acetaminophen ([place] 325-5 Mg) 1 tab PO Q6H PRN PRN Reason: Pain Last Admin: 03/06/18 11:39 Dose: 1 tab Aspirin (Halfprin) 81 mg PO DAILY [facility] Last Admin: 03/06/18 09:06 Dose: 81 mg Bisacodyl (Dulcolax) 10 mg RECTAL DAILY PRN PRN Reason: Constipation Last Admin: 02/28/18 10:15 Dose: 10 mg Citalopram Hydrobromide (Celexa) 20 mg PO DAILY [facility] Last Admin: 03/06/18 09:06 Dose: 20 mg Diazepam (Valium.) 5 mg PO Q6H PRN PRN Reason: Muscle Spasm Enoxaparin Sodium (Lovenox) 40 mg SUBCUT DAILY [facility] Last Admin: 03/06/18 09:06 Dose: 40 mg Famotidine (Pepcid) 20 mg PO DAILY@0600 [facility] Last Admin: 03/06/18 07:00 Dose: 20 mg Insulin Aspart (Novolog Mix 70-30) 32 unit SUBCUT BIDMEALS [facility] Stop: 03/06/18 20:00 Last Admin: 03/06/18 09:05 Dose: 32 units Insulin Glargine (Lantus Solostar) 35 units SUBCUT DAILY@0800 [facility] Insulin Human Lispro (Humalog) 5 unit SUBCUT TIDMEALS [facility] Insulin Human Lispro (Humalog) 0 unit SUBCUT 08,12,18,21 [facility]; Protocol Lisinopril (Prinivil) 10 mg PO BEDTIME [facility] Last Admin: 03/05/18 21:12 Dose: 10 mg Lorazepam (Ativan) 0.5 mg PO Q8H PRN PRN Reason: Anxiety Last Admin: 03/04/18 23:06 Dose: 0.5 mg Multivitamins/Minerals/Vitamin C (Tab-A-Chavo) 1 tab PO DAILY [facility] Last Admin: 03/06/18 09:07 Dose: 1 tab Ondansetron HCl (Zofran Odt) 4 mg PO Q6H PRN PRN Reason: Nausea/Vomiting Last Admin: 03/05/18 08:24 Dose: 4 mg Ropinirole HCl (Requip) 0.5 mg PO TID PRN PRN Reason: restless legs Last Admin: 03/05/18 23:58 Dose: 0.5 mg Senna/Docusate Sodium (Senna Plus) 2 tab PO BID PRN PRN Reason: Constipation Simvastatin (Zocor) 10 mg PO BEDTIME [facility] Last Admin: 03/05/18 21:12 Dose: 10 mg Zolpidem Tartrate (Ambien) 5 mg PO BEDTIME PRN PRN Reason: Insomnia Last Admin: 03/05/18 23:57 Dose: 5 mg Discontinued Medications Hydrocodone Bitart/Acetaminophen ([place] 325-10 Mg) 1 tab PO Q4H PRN PRN Reason: Pain Last Admin: 03/01/18 13:47 Dose: 1 tab Famotidine (Pepcid) 20 mg PO DAILY [facility] Last Admin: 03/02/18 08:35 Dose: 20 mg Insulin Aspart (Novolog Mix 70-30) 64 unit SUBCUT BIDAC [facility] Last Admin: 02/27/18 18:20 Dose: Not Given Iopamidol (Isovue-370 (76%)) 100 ml IV . DIRECTED ONE Stop: 02/28/18 13:56 Last Admin: 02/28/18 14:14 Dose: 90 ml Lisinopril (Prinivil) 20 mg PO BEDTIME [facility] Last Admin: 02/28/18 22:15 Dose: 20 mg Oxycodone HCl (Oxycodone) 10 mg PO Q3H PRN PRN Reason: PAIN (6-10) Last Admin: 02/28/18 06:21 Dose: 10 mg Oxycodone HCl (Oxycodone) 5 mg PO Q3H PRN PRN Reason: Pain (Mild 1-5) Last Admin: 03/05/18 09:45 Dose: 5 mg Polyethylene Glycol (Miralax) 17 gm PO ONETIME ONE Stop: 02/28/18 09:55 Last Admin: 02/28/18 14:35 Dose: Not Given Ropinirole HCl (Requip) Confirm Administered Dose 1 mg .ROUTE .STK-MED ONE Stop: 03/02/18 12:57 Last Admin: 03/02/18 13:03 Dose: Not Given Ropinirole HCl (Requip) Confirm Administered Dose 1 mg .ROUTE .STK-MED ONE Stop: 03/03/18 17:03 Last Admin: 03/03/18 17:55 Dose: Not Given Ropinirole HCl (Requip) 0.5 mg PO ONETIME ONE Stop: 03/03/18 17:22 Last Admin: 03/03/18 18:04 Dose: Not Given Ropinirole HCl (Requip) 0.5 mg PO ONETIME ONE Stop: 03/03/18 18:01 Last Admin: 03/03/18 18:05 Dose: 0.5 mg Senna/Docusate Sodium (Senna Plus) 2 tab PO BID [facility] Last Admin: 03/05/18 08:12 Dose: 2 tab - Exam General: Alert, Oriented, Cooperative, No Acute Distress - Problem List & Annotations (1) Status post total right knee replacement SNOMED Code(s): 3560311501273 Code(s): Z96.651 - PRESENCE OF RIGHT ARTIFICIAL KNEE JOINT Status: Acute Current Visit: Yes Annotation/Comment:: Secondary to fall after tripping on a pallet. Pain is better controlled. Patient doing very well with physical and occupational therapy. Continue current cares. (2) Elevated troponin SNOMED Code(s): 625784400, 393923872, 171145596 Code(s): R74.8 - ABNORMAL LEVELS OF OTHER SERUM ENZYMES Status: Acute Current Visit: Yes Annotation/Comment:: On aspirin daily for this. Negative echocardiogram. Beta norm not started due to diabetes and risk of blocking lows. (3) Diabetes type 2, controlled SNOMED Code(s): 38596056 Code(s): E11.9 - TYPE 2 DIABETES MELLITUS WITHOUT COMPLICATIONS Status: Acute Current Visit: Yes Qualifiers: Diabetes mellitus senior care insulin use: with ocean transportation intermediary use Annotation/Comment:: Blood sugars have been poorly controlled. I have long discussion with the patient regarding the disadvantages of 70/30 insulin in controlling blood sugars and being able to be adjusted. He's had lows in the morning but highs in the afternoon and the long-acting insulin makes it difficult to adjust for this. In talking about options, he does like more flexibility in his meals than he is allowed with the 70/30 and has been on it for years. Suggested we change to a long-acting/short acting regimen and discussed the difference. He is willing to try it here in the hospital to get better blood sugar control. If he decides he doesn't like it he can always resume his home insulin when he discharges. The [facility] provides his insulin therapy. We'll start him at 35 units Lantus every morning and 5 units with meals NovoLog plus sliding scale. Sliding scale at bedtime only if he eats. We will start this tomorrow and adjust accordingly. (4) HLD (hyperlipidemia) SNOMED Code(s): 68783671 Code(s): E78.5 - HYPERLIPIDEMIA, UNSPECIFIED Status: Chronic Current Visit: Yes Qualifiers: Hyperlipidemia type: unspecified Qualified Code(s): E78.5 - Hyperlipidemia , unspecified Annotation/Comment:: Continue Zocor. (5) HTN (hypertension) SNOMED Code(s): 17045360 Code(s): I10 - ESSENTIAL (PRIMARY) HYPERTENSION Status: Chronic Current Visit: Yes Qualifiers: Hypertension type: essential hypertension Qualified Code(s): I10 - Essential (primary) hypertension Annotation/Comment:: Lisinopril at full dose. (6) Obesity SNOMED Code(s): 601279199, 277260300 Code(s): E66.9 - OBESITY, UNSPECIFIED Status: Chronic Current Visit: Yes Qualifiers: Obesity type: due to excess calories (7) RLS (restless legs syndrome) SNOMED Code(s): 11354269 Code(s): G25.81 - RESTLESS LEGS SYNDROME Status: Acute Current Visit: Yes Annotation/Comment:: Currently well-controlled with new medication for patient Requip. (8) DVT prophylaxis SNOMED Code(s): 101794388, 017188204 Code(s): MMM9814 - Status: Acute Current Visit: Yes Annotation/Comment :: Currently on Lovenox for DVT prophylaxis. The plan for discharge would be aspirin 81 mg twice daily for 42 days posthospital discharge. - Problem List Review Problem List Initiated/Reviewed/Updated: Yes - My Orders Last 24 Hours: My Active Orders 03/05/18 15:58 Acetaminophen/HYDROcodone [Gilchrist 325-5 MG] 1 tab PO Q6H PRN 03/05/18 16:01 Docusate Sodium/Sennosides [Senna Plus] 2 tab PO BID PRN 03/07/18 08:00 Insulin Glarg,Human.Rec.Analog [LantUS Solostar] 35 units SUBCUT DAILY@0800 Insulin Lispro [HumaLOG] 5 unit SUBCUT TIDMEALS Insulin Lispro [HumaLOG] See Protocol SUBCUT 08,12,18,21
[2018-03-06] MEDS: rOPINIRole 0.5 MG Tab PO PRN ×2 (14:32→23:09)
[2018-03-06] MEDS: Ondansetron 4 MG Tab.DIS PO PRN (18:06)
[2018-03-06] MEDS: Simvastatin 10 MG Tab PO SCH (21:37)
[2018-03-06] MEDS: Lisinopril 20 MG Tab PO SCH (21:39)
[2018-03-06] MEDS: Zolpidem 5 MG Tab PO PRN (23:09)
[2018-03-07] MEDS: Famotidine 20 MG Tab PO SCH (05:59)
[2018-03-07] MEDS: Ondansetron 4 MG Tab.DIS PO PRN ×2 (08:30→14:38)
[2018-03-07] MEDS: Acetaminophen/HYDROcodone 325-5 MG Tab PO PRN (08:30)
[2018-03-07] MEDS: Insulin Lispro 100 Unit/ML 3 ML KwikPen SUBCUT SCH ×7 (08:43→20:44)
[2018-03-07] MEDS: Insulin Glargine,Human Rec. Analog 100 Units/ML 3 ML Pen SUBCUT SCH (08:44)
[2018-03-07] MEDS: Enoxaparin 40 MG/0.4 ML Syringe SUBCUT SCH (08:48)
[2018-03-07] MEDS: Aspirin 81 MG Tab.EC PO SCH (12:15)
[2018-03-07] MEDS: Multivitamin Tab PO SCH (12:15)
[2018-03-07] MEDS: Citalopram 20 MG Tab PO SCH (12:15)
[2018-03-07] MEDS ORDERED: rOPINIRole 1 MG Tab ONE (17:20)
[2018-03-07] MEDS: rOPINIRole 0.5 MG Tab PO PRN (17:25)
[2018-03-07] MEDS: Simvastatin 10 MG Tab PO SCH (20:37)
[2018-03-07] MEDS: Lisinopril 20 MG Tab PO SCH (20:37)
[2018-03-08] MEDS: rOPINIRole 0.5 MG Tab PO PRN ×2 (00:18→11:11)
[2018-03-08] MEDS: Zolpidem 5 MG Tab PO PRN (00:19)
[2018-03-08] MEDS: Famotidine 20 MG Tab PO SCH (06:00)
[2018-03-08] MEDS: Aspirin 81 MG Tab.EC PO SCH (09:21)
[2018-03-08] MEDS: Citalopram 20 MG Tab PO SCH (09:21)
[2018-03-08] MEDS: Enoxaparin 40 MG/0.4 ML Syringe SUBCUT SCH (09:21)
[2018-03-08] MEDS: Multivitamin Tab PO SCH (09:21)
[2018-03-08] MEDS: Insulin Glargine,Human Rec. Analog 100 Units/ML 3 ML Pen SUBCUT SCH (09:24)
[2018-03-08] MEDS: Insulin Lispro 100 Unit/ML 3 ML KwikPen SUBCUT SCH ×7 (09:25→20:25)
[2018-03-08] MEDS: Acetaminophen 325 MG Tab PO PRN (09:31)
[2018-03-08] MEDS: Gabapentin 300 MG Cap PO SCH ×2 (13:33→20:23)
[2018-03-08] MEDS: Lisinopril 20 MG Tab PO SCH (20:23)
[2018-03-08] MEDS: Simvastatin 10 MG Tab PO SCH (20:24)
[2018-03-09] MEDS: Famotidine 20 MG Tab PO SCH (05:54)
[2018-03-09] MEDS: Insulin Lispro 100 Unit/ML 3 ML KwikPen SUBCUT SCH ×7 (08:27→20:25)
[2018-03-09] MEDS: Insulin Glargine,Human Rec. Analog 100 Units/ML 3 ML Pen SUBCUT SCH (08:28)
[2018-03-09] MEDS: Enoxaparin 40 MG/0.4 ML Syringe SUBCUT SCH (08:29)
[2018-03-09] MEDS: Multivitamin Tab PO SCH (08:29)
[2018-03-09] MEDS: Aspirin 81 MG Tab.EC PO SCH (08:29)
[2018-03-09] MEDS: Gabapentin 300 MG Cap PO SCH ×3 (08:29→20:21)
[2018-03-09] MEDS: Citalopram 20 MG Tab PO SCH (08:29)
[2018-03-09] MEDS: Lisinopril 20 MG Tab PO SCH (20:21)
[2018-03-09] MEDS: Amoxicillin 500 MG Cap PO SCH (20:21)
[2018-03-09] MEDS: Simvastatin 10 MG Tab PO SCH (20:22)
[2018-03-10] MEDS: Famotidine 20 MG Tab PO SCH (06:48)
[2018-03-10] MEDS: Insulin Lispro 100 Unit/ML 3 ML KwikPen SUBCUT SCH ×7 (08:46→20:04)
[2018-03-10] MEDS: Insulin Glargine,Human Rec. Analog 100 Units/ML 3 ML Pen SUBCUT SCH (08:47)
[2018-03-10] MEDS: Citalopram 20 MG Tab PO SCH (08:48)
[2018-03-10] MEDS: Gabapentin 300 MG Cap PO SCH ×3 (08:51→20:01)
[2018-03-10] MEDS: Enoxaparin 40 MG/0.4 ML Syringe SUBCUT SCH (08:51)
[2018-03-10] MEDS: Amoxicillin 500 MG Cap PO SCH ×3 (08:51→20:01)
[2018-03-10] MEDS: Aspirin 81 MG Tab.EC PO SCH (08:51)
[2018-03-10] MEDS: Multivitamin Tab PO SCH (08:52)
[2018-03-10] MEDS: Lisinopril 20 MG Tab PO SCH (20:01)
[2018-03-10] MEDS: Simvastatin 10 MG Tab PO SCH (20:02)
[2018-03-11] MEDS: Famotidine 20 MG Tab PO SCH (06:09)
[2018-03-11] MEDS: Insulin Lispro 100 Unit/ML 3 ML KwikPen SUBCUT SCH ×7 (08:42→21:06)
[2018-03-11] MEDS: Insulin Glargine,Human Rec. Analog 100 Units/ML 3 ML Pen SUBCUT SCH (08:45)
[2018-03-11] MEDS: Citalopram 20 MG Tab PO SCH (08:47)
[2018-03-11] MEDS: Aspirin 81 MG Tab.EC PO SCH (08:47)
[2018-03-11] MEDS: Enoxaparin 40 MG/0.4 ML Syringe SUBCUT SCH (08:48)
[2018-03-11] MEDS: Gabapentin 300 MG Cap PO SCH ×3 (08:48→20:59)
[2018-03-11] MEDS: Multivitamin Tab PO SCH (08:48)
--- NOTE | 2018-03-11 09:05 | PCM.PN ---
- General Info Date of Service: 03/09/18 Admission Dx/Problem (Free Text): R mandibular pain Subjective Update: PMH of dental surgery for dental abscess, and relapse of pain affecting R mandible Functional Status: Reports: New Symptoms - Review of Systems General: Reports: No Symptoms HEENT: Reports: Other (R mandibular pain and tenderness) Pulmonary: Reports: No Symptoms Cardiovascular: Reports: No Symptoms Gastrointestinal: Reports: No Symptoms Genitourinary: Reports: No Symptoms Musculoskeletal: Reports: No Symptoms Skin: Reports: No Symptoms Neurological: Reports: No Symptoms Psychiatric: Reports: No Symptoms - Patient Data Vitals - Most Recent: Last Vital Signs Temp 36.3 C 03/11/18 06:04 Pulse 85 03/11/18 06:04 Resp 17 03/11/18 06:04 BP 126/61 03/11/18 06:04 Pulse Ox 96 03/11/18 06:04 Weight - Most Recent: 125.645 kg I&O - Last 24 Hours: Intake & Output 03/10/18 03/11/18 03/11/18 22:59 06:59 14:59 Intake Total 200 Balance 200 Lab Results Last 24 Hours: Laboratory Results - last 24 hr 03/10/18 03/10/18 03/10/18 Range/Units 11:32 17:41 19:48 POC Glucose 335 H D 316 H 374 H (80-116) mg/dL 03/11/18 Range/Units 06:43 POC Glucose 245 H D (80-116) mg/dL Med Orders - Current: Current Medications Acetaminophen (Tylenol) 650 mg PO Q4H PRN PRN Reason: Pain Last Admin: 03/08/18 09:31 Dose: 650 mg Hydrocodone Bitart/Acetaminophen ([place] 325-5 Mg) 1 tab PO Q6H PRN PRN Reason: Pain Last Admin: 03/06/18 11:39 Dose: 1 tab Amoxicillin (Amoxil) 500 mg PO TID [facility] Last Admin: 03/10/18 20:01 Dose: 500 mg Aspirin (Halfprin) 81 mg PO DAILY [facility] Last Admin: 03/11/18 08:47 Dose: 81 mg Bisacodyl (Dulcolax) 10 mg RECTAL DAILY PRN PRN Reason: Constipation Last Admin: 02/28/18 10:15 Dose: 10 mg Citalopram Hydrobromide (Celexa) 20 mg PO DAILY [facility] Last Admin: 03/11/18 08:47 Dose: 20 mg Diazepam (Valium.) 5 mg PO Q6H PRN PRN Reason: Muscle Spasm Enoxaparin Sodium (Lovenox) 40 mg SUBCUT DAILY [facility] Last Admin: 03/11/18 08:48 Dose: 40 mg Famotidine (Pepcid) 20 mg PO DAILY@0600 [facility] Last Admin: 03/11/18 06:09 Dose: 20 mg Gabapentin (Neurontin) 300 mg PO TID [facility] Last Admin: 03/11/18 08:48 Dose: 300 mg Insulin Glargine (Lantus Solostar) 35 units SUBCUT DAILY@0800 [facility] Last Admin: 03/11/18 08:45 Dose: 35 units Insulin Human Lispro (Humalog) 5 unit SUBCUT TIDMEALS [facility] Last Admin: 03/11/18 08:44 Dose: 5 units Insulin Human Lispro (Humalog) 0 unit SUBCUT 08,12,18,21 [facility]; Protocol Last Admin: 03/11/18 08:42 Dose: 4 units Lisinopril (Prinivil) 20 mg PO BEDTIME [facility] Last Admin: 03/10/18 20:01 Dose: 20 mg Lorazepam (Ativan) 0.5 mg PO Q8H PRN PRN Reason: Anxiety Last Admin: 03/04/18 23:06 Dose: 0.5 mg Multivitamins/Minerals/Vitamin C (Tab-A-Chavo) 1 tab PO DAILY [facility] Last Admin: 03/11/18 08:48 Dose: 1 tab Ondansetron HCl (Zofran Odt) 4 mg PO Q6H PRN PRN Reason: Nausea/Vomiting Last Admin: 03/07/18 14:38 Dose: 4 mg Ropinirole HCl (Requip) 0.5 mg PO TID PRN PRN Reason: restless legs Last Admin: 03/08/18 11:11 Dose: 0.5 mg Senna/Docusate Sodium (Senna Plus) 2 tab PO BID PRN PRN Reason: Constipation Simvastatin (Zocor) 10 mg PO BEDTIME [facility] Last Admin: 03/10/18 20:02 Dose: 10 mg Zolpidem Tartrate (Ambien) 5 mg PO BEDTIME PRN PRN Reason: Insomnia Last Admin: 03/08/18 00:19 Dose: 5 mg Discontinued Medications Hydrocodone Bitart/Acetaminophen ([place] 325-10 Mg) 1 tab PO Q4H PRN PRN Reason: Pain Last Admin: 03/01/18 13:47 Dose: 1 tab Famotidine (Pepcid) 20 mg PO DAILY [facility] Last Admin: 03/02/18 08:35 Dose: 20 mg Insulin Aspart (Novolog Mix 70-30) 64 unit SUBCUT BIDAC [facility] Last Admin: 02/27/18 18:20 Dose: Not Given Insulin Aspart (Novolog Mix 70-30) 32 unit SUBCUT BIDMEALS [facility] Stop: 03/06/18 20:00 Last Admin: 03/06/18 18:06 Dose: 32 units Iopamidol (Isovue-370 (76%)) 100 ml IV . DIRECTED ONE Stop: 02/28/18 13:56 Last Admin: 02/28/18 14:14 Dose: 90 ml Lisinopril (Prinivil) 20 mg PO BEDTIME [facility] Last Admin: 02/28/18 22:15 Dose: 20 mg Lisinopril (Prinivil) 10 mg PO BEDTIME [facility] Last Admin: 03/05/18 21:12 Dose: 10 mg Oxycodone HCl (Oxycodone) 10 mg PO Q3H PRN PRN Reason: PAIN (6-10) Last Admin: 02/28/18 06:21 Dose: 10 mg Oxycodone HCl (Oxycodone) 5 mg PO Q3H PRN PRN Reason: Pain (Mild 1-5) Last Admin: 03/05/18 09:45 Dose: 5 mg Polyethylene Glycol (Miralax) 17 gm PO ONETIME ONE Stop: 02/28/18 09:55 Last Admin: 02/28/18 14:35 Dose: Not Given Ropinirole HCl (Requip) Confirm Administered Dose 1 mg .ROUTE .STK-MED ONE Stop: 03/02/18 12:57 Last Admin: 03/02/18 13:03 Dose: Not Given Ropinirole HCl (Requip) Confirm Administered Dose 1 mg .ROUTE .STK-MED ONE Stop: 03/03/18 17:03 Last Admin: 03/03/18 17:55 Dose: Not Given Ropinirole HCl (Requip) 0.5 mg PO ONETIME ONE Stop: 03/03/18 17:22 Last Admin: 03/03/18 18:04 Dose: Not Given Ropinirole HCl (Requip) 0.5 mg PO ONETIME ONE Stop: 03/03/18 18:01 Last Admin: 03/03/18 18:05 Dose: 0.5 mg Ropinirole HCl (Requip) Confirm Administered Dose 1 mg .ROUTE .STK-MED ONE Stop: 03/07/18 17:21 Last Admin: 03/07/18 17:24 Dose: Not Given Senna/Docusate Sodium (Senna Plus) 2 tab PO BID [facility] Last Admin: 03/05/18 08:12 Dose: 2 tab - Exam General: Alert, Oriented, Cooperative HEENT: Pupils Equal, Other (oral exam: residual defects from root canal and extraction surgeries affecting R mandible) Neck: Supple, Trachea Midline Lungs: Clear to Auscultation Cardiovascular: Regular Rhythm Neurological: No New Focal Deficit - Problem List & Annotations (1) Dental infection SNOMED Code(s): 935280143 Code(s): K04.7 - PERIAPICAL ABSCESS WITHOUT SINUS Status: Acute Current Visit: Yes Annotation/Comment:: I restarted Amoxicillin 500mg tid for a week. He should follow up with DDS. - Problem List Review Problem List Initiated/Reviewed/Updated: Yes - Plan Plan:: Admit to swing bed, a consultation still physical and occupational therapy. Resume medications from [facility]. His record there was reviewed and discharge summary acknowledged
[2018-03-11] MEDS: Amoxicillin 500 MG Cap PO SCH ×3 (09:16→20:59)
[2018-03-11] MEDS: Lisinopril 20 MG Tab PO SCH (21:00)
[2018-03-11] MEDS: Simvastatin 10 MG Tab PO SCH (21:04)
[2018-03-12] MEDS: Famotidine 20 MG Tab PO SCH (06:05)
[2018-03-12] MEDS: Insulin Lispro 100 Unit/ML 3 ML KwikPen SUBCUT SCH ×4 (07:46→11:41)
[2018-03-12] MEDS: Insulin Glargine,Human Rec. Analog 100 Units/ML 3 ML Pen SUBCUT SCH (07:49)
[2018-03-12] MEDS: Citalopram 20 MG Tab PO SCH (08:02)
[2018-03-12] MEDS: Gabapentin 300 MG Cap PO SCH (08:02)
[2018-03-12] MEDS: Aspirin 81 MG Tab.EC PO SCH (08:02)
[2018-03-12] MEDS: Amoxicillin 500 MG Cap PO SCH (08:02)
[2018-03-12] MEDS: Multivitamin Tab PO SCH (08:02)
[2018-03-12] MEDS: Enoxaparin 40 MG/0.4 ML Syringe SUBCUT SCH (08:04)
--- NOTE | 2018-03-12 10:07 | DISCH ---
DISCHARGE DATE: 03/12/2018 REASON FOR ADMISSION: 1. Physical debility. 2. Status post right femur ORIF. 3. Type 2 diabetes. 4. Hyperlipidemia. 5. Hypertension. 6. Obesity. DISCHARGE DIAGNOSES: 1. Physical debility. 2. Status post right femur ORIF. 3. Type 2 diabetes. 4. Hyperlipidemia. 5. Hypertension. 6. Obesity. 7. Restless legs syndrome. CONSULTATIONS: Physical Therapy. MEDICATION CHANGES: Hydrocodone was started instead of Percocet, but he has not been using this for 3 days. Humulin 70/30. Gabapentin was continued. Valium was discontinued and amoxicillin was started for an infection of the teeth. Requip was started for restless leg. BRIEF HISTORY AND HOSPITAL COURSE: A 77-year-old male who came in because of physical debility, needing strengthening and physical rehab from a fracture he had on the right femur, which was done at [facility]. He initially complained of shortness of breath. No nausea or vomiting. Was found to be constipated, and this improved much when he had a stool. Initial cardiac workup, including an x- ray of the chest, was unremarkable. He progressed well and was ready to go home. The day before he went home, he complained of pain in the jaw and teeth, and Dr. Medley started him on amoxicillin. In the hospital, his blood sugars were up and down and because of that, he was started on Lantus and NovoLog. DISCHARGE MEDICATIONS: He was discharged home on the following medications; 1. Gabapentin 300 mg t.i.d. 2. Citalopram 20 mg a day. 3. Aspirin 81 mg a day. 4. Amoxicillin 500 mg t.i.d. 5. Acetaminophen 650 mg q.4 hours p.r.n. 6. Famotidine 20 mg daily. 7. Docusate two tabs p.o. b.i.d. p.r.n. 8. Lantus 35 units every night. 9. NovoLog 5 units with every meal. 10.Requip 0.5 mg p.o. t.i.d. p.r.n. 11.Zocor 10 mg at bedtime. 12.Ambien 5 mg at bedtime. FOLLOWUP: The patient will need home health because of his type 2 diabetes and physical rehab. He will need skilled nurse for PT and OT due to home-bound status. I anticipate this to be between 2 to 4 weeks. He will also be seen by his [facility] physician and orthopedic surgeon at discharge, as previously scheduled. Please note that I spent more than 35 minutes in the discharge of the patient. /[id number] [place]
== END 2018-03-12 13:20 | disposition home or self-care (01) | DRG 561 ==
LOC: FB.MS 15:31
PROVIDERS: ADMIT Family Medicine; ATTEND Family Medicine
DX: Z47.1 Aftercare following joint replacement surgery (principal); S82.001D Unspecified fracture of right patella, subsequent encounter for closed fracture with routine healing; S72.401D Unspecified fracture of lower end of right femur, subsequent encounter for closed fracture with routine healing; W19.XXXD Unspecified fall, subsequent encounter; E66.9 Obesity, unspecified; Z68.35 Body mass index [BMI] 35.0-35.9, adult; G25.81 Restless legs syndrome; I10 Essential (primary) hypertension; E11.9 Type 2 diabetes mellitus without complications; E78.5 Hyperlipidemia, unspecified; R94.39 Abnormal result of other cardiovascular function study; K04.7 Periapical abscess without sinus; R12 Heartburn; I51.7 Cardiomegaly; Z79.899 Other long term (current) drug therapy; Z79.4 Long term (current) use of insulin; Z98.890 Other specified postprocedural states; Z96.651 Presence of right artificial knee joint
CPT/HCPCS: 36415; 71275; 80053; 82962; 83880; 84484; 85025; 85379; 93005; 93306; 97110-GO; 97110-GP; 97116-GP; 97162-GP; 97165-GO; 97530-GO; 97530-GP; 97535-GO; A9270-GY; J1650; J1815; J1815-GY; Q9967